=== PATIENT | female | born 1960 | race African-American/Black ===

== ENCOUNTER 2019-05-25 15:41 | Emergency (ER) | payer OTHER ==
[~2019-05-25] VITALS: Ht 160 cm; Wt 158.8 kg
[2019-05-25] MEDS ORDERED: LISINOPRIL2.5 MG PO (15:44)
[2019-05-25] MEDS ORDERED: FLONASE 0.05%50 MCG NARES (15:44)
[2019-05-25] MEDS ORDERED: ALBUTEROL2.5 MG/3 M INH (17:42)
[2019-05-25] MEDS ORDERED: PREDNISONE 20 M20 MG PO (17:42)
[2019-05-25] MEDS ORDERED: PROAIR HFA8.5 GM INH (17:42)
[2019-05-25] MEDS ORDERED: TAMIFLU75 MG PO (17:42)
[2019-05-25] MEDS ORDERED: LEVAQUIN 750 M750 MG PO (17:42)
[2019-05-25 17:58] VITALS: BP 163/71
== END 2019-05-25 17:59 | disposition home or self-care (01) ==
LOC: ER 15:41
DX: J09.X1 Influenza due to identified novel influenza A virus with pneumonia (principal); I10 Essential (primary) hypertension; E66.01 Morbid (severe) obesity due to excess calories; F17.210 Nicotine dependence, cigarettes, uncomplicated; Z68.44 Body mass index [BMI] 60.0-69.9, adult; Z88.2 Allergy status to sulfonamides

== ENCOUNTER 2019-05-28 16:18 | Emergency (ER) | payer OTHER ==
[~2019-05-28] VITALS: Ht 160 cm; Wt 158.8 kg
[~2019-05-28 16:18] MED LIST: ALBUTEROL2.5 MG/3 M INH; FLONASE 0.05%50 MCG NARES; LEVAQUIN 750 M750 MG PO; LISINOPRIL2.5 MG PO; PREDNISONE 20 M20 MG PO; PROAIR HFA8.5 GM INH; TAMIFLU75 MG PO
[2019-05-28 17:38] LABS: ABSOLUTE NEUTROPHILS 5.2 thou/uL (1.4-8.2); BASOPHILS 0.2 % (0.0-2.0); HEMATOCRIT 42.9 % (37.0-47.0); HEMOGLOBIN 13.8 gm/dL (12.0-15.0); LYMPHOCYTES 14.5 % (24.0-44.0); MCH 29.3 pg (26.0-34.0); MCHC 32.1 g/dL (28.0-37.0); MCV 91.3 fL (80.0-100.0); MONOCYTES 8.1 % (1.0-8.0); PLATELET COUNT 316 thou/uL (150-400); POLYS 77.2 % (36.0-66.0); RDW 15.7 % (10.5-14.5); WBC 6.7 thou/uL (4.0-11.0)
[2019-05-28 17:43] LABS: ANION GAP 7 mmol/L (7-16); BUN 18 mg/dL (7-18); CALCIUM 9.6 mg/dL (8.5-10.1); CHLORIDE 102 mmol/L (98-107); CO2 33 mmol/L (21-32); CREATININE 1.1 mg/dL (0.6-1.0); GLUCOSE 122 mg/dL (74-106); POTASSIUM 3.5 mmol/L (3.5-5.1); SODIUM 142 mmol/L (136-145)
[2019-05-28 17:50] LABS: ALBUMIN 3.5 g/dL (3.4-5.0); DIRECT BILIRUBIN < 0.1 mg/dL (<0.1-0.2); LIPASE 42 U/L (73-393); SGOT 15 U/L (15-37); SGPT 20 U/L (30-65); TOTAL BILIRUBIN 0.2 mg/dL (<0.1-1.0); TOTAL PROTEIN 8.1 g/dL (6.4-8.2)
[2019-05-28 19:15] VITALS: BP 144/58
[2019-05-28] MEDS ORDERED: TESSALON PERLE100 MG PO (19:15)
[2019-05-28] MEDS ORDERED: PROAIR HFA8.5 GM INH (19:15)
[2019-05-28] MEDS ORDERED: PREDNISONE 20 M20 MG PO (19:15)
== END 2019-05-28 19:25 | disposition home or self-care (01) ==
LOC: ER 16:18
PROVIDERS: Nurse Practitioner
DX: J06.9 Acute upper respiratory infection, unspecified (principal); I10 Essential (primary) hypertension; F17.210 Nicotine dependence, cigarettes, uncomplicated; Z88.2 Allergy status to sulfonamides